=== PATIENT | female | born 1985 | race African-American/Black ===

== ENCOUNTER 2023-06-03 22:33 | Emergency (ER) | payer OTHER ==
[2023-06-03] MEDS ORDERED: Ibuprofen 200 MG TAB ONE (23:17)
== END 2023-06-03 23:54 | disposition home or self-care (01) ==
LOC: NAV ERS 22:33
DX: S39.012A Strain of muscle, fascia and tendon of lower back, initial encounter (principal); V49.00XA Driver injured in collision with unspecified motor vehicles in nontraffic accident, initial encounter
CPT/HCPCS: 72100